=== PATIENT | female | born 1995 | race Caucasian/White ===

== ENCOUNTER 2024-04-20 20:01 | Emergency (ER) | payer SELFPAY ==
[2024-04-20 20:07] VITALS: BP 137/84; PULSE 97; RESP 18; TEMP 97; BMI 26.6
[2024-04-20 22:06] LABS: PH,URINE 7.5 (5.0-8.0); URINE APPEARANCE CLEAR; URINE BILIRUBIN NEGATIVE (NEGATIVE); URINE COLOR YELLOW; URINE GLUCOSE (UA) NEGATIVE (NEGATIVE); URINE KETONE NEGATIVE (NEGATIVE); URINE LEUK ESTERASE NEGATIVE (NEGATIVE); URINE NITRITE NEGATIVE (NEGATIVE); URINE PROTEIN NEGATIVE (NEGATIVE); URINE UROBILINOGEN 0.2 mg/dL (0.2-1.0)
[2024-04-20] MEDS ORDERED: MAG HYDROX/AL HYDROX/SIMETH 30 ML UNIT-DOSE CUP ONE (22:43)
[2024-04-20] MEDS ORDERED: FAMOTIDINE 20 MG TABLET ONE (22:43)
[2024-04-20] MEDS ORDERED: LIDOCAINE VISCOUS 2% ORAL/TOP 15 ML UNIT-DOSE CUP ONE (22:43)
[2024-04-20 22:44] LABS: HCG,QUALITATIVE URINE Negative
[2024-04-20] MEDS: LIDOCAINE VISCOUS 2% ORAL/TOP 15 ML UNIT-DOSE CUP MM ONE (22:46)
[2024-04-20] MEDS: FAMOTIDINE 20 MG TABLET PO ONE (22:47)
[2024-04-20] MEDS: MAG HYDROX/AL HYDROX/SIMETH 30 ML UNIT-DOSE CUP PO ONE (22:47)
== END 2024-04-20 23:33 | disposition home or self-care (01) ==
LOC: JER 20:01
DX: K21.9 Gastro-esophageal reflux disease without esophagitis (principal); R30.0 Dysuria; R35.0 Frequency of micturition
CPT/HCPCS: 81003; 84703; 87086; 99283-25

== ENCOUNTER 2024-06-29 07:46 | Emergency (ER) | payer SELFPAY ==
[2024-06-29 07:57] VITALS: TEMP 98.6; BMI 27.4
[2024-06-29 10:47] LABS: BASO % 0.4 % (0-2.0); EOS % 1.6 % (0-4.5); HEMATOCRIT 39.8 % (32.4-45.2); LYMPH % 14.1 % (8-40); MCH 23.5 pg (25.7-33.7); MCHC 32.7 g/dl (32.0-36.0); MEAN CELL VOLUME 71.9 fl (80-96); MONO % 6.9 % (3.8-10.2); PLATELET COUNT 280 10^3/uL (134-434); RBC 5.53 M/mm3 (3.60-5.2); RDW 15.1 % (11.6-15.6); WHITE BLOOD COUNT 7.8 K/mm3 (4.0-10.0)
[2024-06-29 11:13] LABS: HCG,QUALITATIVE URINE Negative
[2024-06-29 11:15] LABS: URINE APPEARANCE CLEAR; URINE BILIRUBIN NEGATIVE (NEGATIVE); URINE COLOR YELLOW; URINE GLUCOSE (UA) NEGATIVE (NEGATIVE); URINE KETONE TRACE (NEGATIVE); URINE PROTEIN NEGATIVE (NEGATIVE)
[2024-06-29 11:16] LABS: URINE LEUK ESTERASE NEGATIVE (NEGATIVE); URINE NITRITE NEGATIVE (NEGATIVE); URINE UROBILINOGEN 0.2 mg/dL (0.2-1.0)
[2024-06-29 11:39] LABS: CHLORIDE 106 mmol/L (98-107); POTASSIUM 4.4 mmol/L (3.5-5.1); SODIUM 137 mmol/L (136-145)
[2024-06-29 11:41] LABS: ALBUMIN 4.1 g/dl (3.4-5.0); ANION GAP 8 mmol/L (4-13); BLOOD UREA NITROGEN 10.5 mg/dL (7-18); CALCIUM 9.6 mg/dL (8.5-10.1); CO2 23 mmol/L (21-32); GLUCOSE,RANDOM 87 mg/dL (74-106)
[2024-06-29 11:44] LABS: CREATININE 0.6 mg/dL (0.55-1.3); SGOT/AST 35 U/L (15-37); SGPT/ALT 41 U/L (13-61)
[2024-06-29 11:46] LABS: BILIRUBIN,TOTAL 0.4 mg/dL (0.2-1); TOT PROT 8.6 g/dl (6.4-8.2)
[2024-06-29 11:47] LABS: ALK PHOS 92 U/L (45-117)
[2024-06-29 12:17] LABS: HIV INTERPRETATION NEGATIVE (NEGATIVE)
[2024-06-29 12:44] VITALS: BP 120/72; PULSE 96; RESP 14
== END 2024-06-29 12:55 | disposition home or self-care (01) ==
LOC: JER 07:46
DX: N83.202 Unspecified ovarian cyst, left side (principal); R10.84 Generalized abdominal pain; N84.0 Polyp of corpus uteri; R06.02 Shortness of breath; R35.0 Frequency of micturition
CPT/HCPCS: 36415; 76775-TC; 76830-TC; 80053; 81003; 83690; 84703; 85025; 86140; 86803; 87086; 87389; 99284-25